=== PATIENT | male | born 1955 | race Caucasian/White ===

== ENCOUNTER 2018-01-10 13:05 | Day surgery (SDC) | payer MEDICAID ==
[2018-01-10] MEDS ORDERED: Midazolam 2 MG/2 ML VIAL ONE (15:17)
[2018-01-10] MEDS ORDERED: Propofol 10 mg/ml Inj (20 ML) ONE (15:17)
[2018-01-10] MEDS ORDERED: Phenylephrine 10 mg/ml Inj ONE (15:20)
[2018-01-10] MEDS ORDERED: ceFAZolin IV 1 gm in Dextrose 2 GM/100 ML BAG IVPB ONE (15:24)
[2018-01-10] MEDS ORDERED: Lidocaine Hydrochloride 20 ML INJ ONE (15:35)
[2018-01-10] MEDS ORDERED: Bupivacaine 0.25% 20 ML INJ IJ ONE (15:35)
[2018-01-10] MEDS ORDERED: HYDROmorphone 0.5 mg/0.5 ml ISec IVP PRN (16:11)
[2018-01-10] MEDS ORDERED: Bacitracin Ointment 30 GM TUBE ONE (16:20)
[2018-01-10 17:53] VITALS: RESP 18; TEMP 97.7; O2SAT 96
[2018-01-10 18:45] VITALS: BP 139/69; PULSE 75
--- NOTE | 2018-01-18 06:46 | OP ---
PROCEDURE DATE: 01/10/2018 PREOPERATIVE DIAGNOSIS: Large left hydrocele. POSTOPERATIVE DIAGNOSIS: Large left hydrocele. PROCEDURE: Left hydrocele repair. DESCRIPTION OF PROCEDURE: While the patient in supine position and after starting anesthesia, which was intubated due to the size of the patient, genitalia prepped and draped in sterile fashion. The left scrotum isolated in the field and the transverse area of the hydrocele, the skin infiltrated with Xylocaine and Marcaine. Incision carried transversally through the skin, subcutaneous tissue, tunica vaginalis opened and couple hundred of clear liquid drained. The testes and the tunica inspected. There was a small stone, but otherwise no abnormality. To prevent the hydrocele from coming back, Lord's procedure done which will plicate all the tunica around the testicle to prevent accumulation and to block the whole space. So, suture from the edge of the tunica towards the testicle, multiple sutures applied around the area using 3-0 chromic. After finishing, the area irrigated. The testicle with the tunica dropped back into the scrotum. The area irrigated, all bleeders subcutaneous fulgurated. Using 3-0 chromic subcutaneous and the skin sutured with 3-0 chromic. At the end of the procedure, there was no active bleeding and line was free from any bleeding. The patient tolerated the procedure well. After putting fluffs, special scrotal support was placed. No size fit him, we used a bigger size, it was tight. We will follow that in the recovery room. The patient tolerated the procedure well and this area needed to be under compression for the next 2 days. The patient tolerated the procedure well, transferred to the recovery in stable condition. Vani Dooley MD
== END 2018-01-10 18:50 | disposition home or self-care (01) ==
LOC: C.SDS 13:05
PROVIDERS: ATTEND Specialist
DX: N43.3 Hydrocele, unspecified (principal); E11.9 Type 2 diabetes mellitus without complications
CPT/HCPCS: 55060; 82948; J0690; J2250; J2370; J2704; J3010